=== PATIENT | female | born 1935 | race Caucasian/White ===

== ENCOUNTER → 2016-09-04 | Outpatient (REF) | payer OTHER ==
[~2016-09-04] MED LIST: ALLO100T PO; DOXY100C PO; DRIS50002 PO; FISH120012 PO; FOLI1TAB2 PO; FURO40TA2 PO; HYDR200T3 PO; MULT1TAB8 PO; PANT40TA2 PO; PRAD150C PO; PRAV1TAB39 PO; PRED5TA PO; PROP80TA PO; SPIR25TA2 PO; UNIT1TAB PO
== END ==
LOC: M SFHCPLAZ 09:30
PROVIDERS: ATTEND Family Medicine
DX: E03.9 Hypothyroidism, unspecified (principal)

== ENCOUNTER → 2016-11-18 | Outpatient (REF) | payer OTHER ==
[2016-11-18 14:25] LABS: ALBUMIN 3.3 GM/DL (3.2-5.2); ALBUMIN/GLOBULIN RATIO 1.22 (1.00-1.93); BILIRUBIN,TOTAL 0.6 MG/DL (0.2-1.0); CALCIUM LEVEL 8.2 MG/DL (8.8-10.2); CREATININE FOR GFR 1.73 MG/DL (0.55-1.02); GLOMERULAR FILTRATION RATE 30.2 (>39); POTASSIUM SERUM 4.5 MEQ/L (3.5-5.1)
== END ==
LOC: M SFHCPLAZ 11:32
PROVIDERS: ATTEND Family Medicine
DX: E11.9 Type 2 diabetes mellitus without complications (principal)

== ENCOUNTER → 2016-12-21 | Outpatient (REF) | payer OTHER ==
[2016-12-21 13:47] LABS: CALCIUM LEVEL 8.8 MG/DL (8.8-10.2); CREATININE FOR GFR 1.42 MG/DL (0.55-1.02)
[2016-12-21 13:49] LABS: POTASSIUM SERUM 5.3 MEQ/L (3.5-5.1)
== END ==
LOC: M SFHCPLAZ 11:02
PROVIDERS: ATTEND Family Medicine
DX: R79.89 Other specified abnormal findings of blood chemistry (principal)
CPT/HCPCS: 36415; 80048; G0463

== ENCOUNTER → 2016-12-25 | Outpatient (REF) | payer OTHER ==
[2016-12-25 13:05] LABS: CALCIUM LEVEL 8.3 MG/DL (8.8-10.2); CREATININE FOR GFR 1.57 MG/DL (0.55-1.02); GLOMERULAR FILTRATION RATE 33.8 (>39); POTASSIUM SERUM 4.8 MEQ/L (3.5-5.1)
== END ==
LOC: M SFHCPLAZ 09:38
PROVIDERS: ATTEND Family Medicine
DX: N18.3 Chronic kidney disease, stage 3 (moderate) (principal)

== ENCOUNTER → 2016-12-27 | Outpatient (REF) | payer OTHER | LOC: M SFHCPLAZ 11:10 | PROVIDERS: ATTEND Family Medicine | DX: N18.3 Chronic kidney disease, stage 3 (moderate) (principal) ==

== ENCOUNTER → 2016-12-28 | Outpatient (CLI) | payer OTHER ==
--- NOTE | 2016-12-28 11:16 | REP ---
Chronic medical renal disease. Technique: Real time hancock scale ultrasound examination using curved array transducer. Findings: The bilateral kidneys are are normal in contour, size, and echogenicity with prominent central renal sinus fat and cortical thinning consistent with age-related renal disease. No nephrolithiasis, hydronephrosis or mass lesion appreciated. Right kidney measures 9.2 x 4.1 x 4.9 cm and includes 1.3 cm lateral simple cyst. Left kidney measures 9.8 x 4.2 x 5.0 cm and includes 1.2 cm medial mid pole simple cyst. Impression: Evidence chronic medical renal disease. No hydronephrosis. Small simple cyst noted. Signed by Meliton Soler MD 12/28/2016 11:07 A
== END ==
LOC: M RAD 09:55
PROVIDERS: ATTEND Family Medicine
DX: N18.3 Chronic kidney disease, stage 3 (moderate) (principal)

== ENCOUNTER → 2017-02-15 | Outpatient (REF) | payer OTHER ==
[~2017-02-15] MED LIST changes: -FOLI1TAB2 PO; +FOLI1TAB4 PO
[2017-02-15 13:06] LABS: CALCIUM LEVEL 9.2 MG/DL (8.8-10.2); CREATININE FOR GFR 1.52 MG/DL (0.55-1.02); GLOMERULAR FILTRATION RATE 35.1 (>39); POTASSIUM SERUM 4.7 MEQ/L (3.5-5.1)
== END ==
LOC: M SFHCPLAZ 09:46
PROVIDERS: ATTEND Family Medicine
DX: N18.3 Chronic kidney disease, stage 3 (moderate) (principal)

== ENCOUNTER → 2017-02-22 | Outpatient (REF) | payer OTHER | LOC: M SFHCPLAZ 10:11 | PROVIDERS: ATTEND Family Medicine | DX: E11.21 Type 2 diabetes mellitus with diabetic nephropathy (principal) | CPT/HCPCS: 83036; G0463 ==

== ENCOUNTER → 2017-08-30 | Outpatient (REF) | payer OTHER ==
[2017-08-30 15:31] LABS: ANION GAP 9 MEQ/L (8-16); BLOOD UREA NITROGEN 38 MG/DL (7-18); CALCIUM LEVEL 8.8 MG/DL (8.8-10.2); CARBON DIOXIDE LEVEL 27 MEQ/L (21-32); CHLORIDE LEVEL 107 MEQ/L (98-107); CREATININE FOR GFR 2.29 MG/DL (0.55-1.02); GLOMERULAR FILTRATION RATE 21.9 (>39); GLUCOSE, FASTING 65 MG/DL (70-100); POTASSIUM SERUM 4.7 MEQ/L (3.5-5.1); SODIUM LEVEL 143 MEQ/L (136-145)
[2017-08-30 15:41] LABS: ESTIMATED AVERAGE GLUCOSE 137 MG/DL (60-110); HEMOGLOBIN A1c 6.4 %
== END ==
LOC: M SFHCPLAZ 10:26
DX: E11.21 Type 2 diabetes mellitus with diabetic nephropathy (principal); I10 Essential (primary) hypertension; E03.9 Hypothyroidism, unspecified
CPT/HCPCS: 84443

== ENCOUNTER → 2017-09-07 | Outpatient (CLI) | payer OTHER | LOC: M WHC 08:43 | DX: N18.3 Chronic kidney disease, stage 3 (moderate) (principal) | CPT/HCPCS: 76775 ==

== ENCOUNTER 2017-09-23 07:21 | Emergency (ER) | payer OTHER ==
[2017-09-23 08:42] LABS: KETONE, URINE AUTO RFX TRACE mg/dL (NEGATIVE); MUCUS, URINE RFX SMALL (NEGATIVE); RBC, URINE AUTO RFX 1 /HPF (0-3); SPECIFIC GRAVITY UR AUTO RFX 1.019 (1.002-1.035); SQUAM EPITHELIAL CELL UR AURFX 1 /HPF (0-6); WBC, URINE AUTO RFX 8 /HPF (0-3)
[2017-09-23 08:45] LABS: LEUKOCYTE ESTERASE UR AUTO RFX 1+ (NEGATIVE); NITRITE, URINE AUTO RFX POSITIVE (NEGATIVE)
== END 2017-09-23 09:08 | disposition home or self-care (01) ==
LOC: M ED 07:21
DX: N39.0 Urinary tract infection, site not specified (principal); G89.29 Other chronic pain; M54.5 Low back pain; I10 Essential (primary) hypertension; E03.9 Hypothyroidism, unspecified; M10.9 Gout, unspecified; M19.90 Unspecified osteoarthritis, unspecified site; Z79.899 Other long term (current) drug therapy; Z79.890 Hormone replacement therapy; Z88.2 Allergy status to sulfonamides; Z87.891 Personal history of nicotine dependence
CPT/HCPCS: 81001

== ENCOUNTER → 2017-10-13 | Outpatient (REF) | payer OTHER | LOC: M LAB REF 17:13 | DX: N39.0 Urinary tract infection, site not specified (principal) | CPT/HCPCS: 87086 ==

== ENCOUNTER → 2018-01-12 | Outpatient (REF) | payer OTHER ==
[2018-01-12 16:23] LABS: FERRITIN 41 NG/ML (8-252); IRON (FE) 73 UG/DL (50-170); PERCENT SATURATION 23.6 % (13.2-45.0); TOTAL IRON BINDING CAPACITY 309 UG/DL (250-450)
== END ==
LOC: M LAB REF 15:39
DX: N18.9 Chronic kidney disease, unspecified (principal); D63.1 Anemia in chronic kidney disease
CPT/HCPCS: 83550

== ENCOUNTER → 2018-03-02 | Outpatient (REF) | payer OTHER ==
[2018-03-02 18:01] LABS: ESTIMATED AVERAGE GLUCOSE 143 MG/DL (60-110); HEMOGLOBIN A1c 6.6 %
== END ==
LOC: M SFHCPLAZ 15:15
DX: E11.21 Type 2 diabetes mellitus with diabetic nephropathy (principal); Z12.11 Encounter for screening for malignant neoplasm of colon
CPT/HCPCS: 83036

== ENCOUNTER → 2018-05-19 | Outpatient (REF) | payer OTHER | LOC: M LAB REF 17:20 | DX: N39.0 Urinary tract infection, site not specified (principal) | CPT/HCPCS: 87186 ==

== ENCOUNTER → 2019-01-03 | Outpatient (REF) | payer OTHER, MEDICARE ==
[~2019-01-03] MED LIST changes: -DRIS50002 PO; +DRIS50003 PO; +FOLI1TAB11 PO; -FOLI1TAB4 PO; +GLIP2.5T6 PO; +LIPI10TA PO; +LISI-1046 PO; +MACR100C43 PO; -PANT40TA2 PO; +PANT40TA3 PO; -PRAD150C PO; +PRAD150C6 PO; +SPIR-10 PO; -SPIR25TA2 PO
[2019-01-03 20:00] LABS: BASO # 0.1 10^3/uL (0.0-0.2); BASO % 0.7 % (0.0-1.0); EOS # 0.1 10^3/uL (0.0-0.50); EOS % 0.9 % (0.0-3.0); HEMATOCRIT 40.2 % (36.0-47.0); HEMOGLOBIN 12.2 g/dl (12.0-15.5); LYMPH # 2.3 10^3/uL (1.5-4.5); LYMPH % 18.5 % (24.0-44.0); MEAN CORPUSCULAR HEMOGLOBIN 31.6 pg (27.0-33.0); MEAN CORPUSCULAR HGB CONC 30.3 g/dl (32.0-36.5); MEAN CORPUSCULAR VOLUME 104.1 fl (80.0-96.0); MONO # 1.1 10^3/uL (0.0-0.8); MONO % 9.2 % (0.0-5.0); NEUTROPHILS # 8.7 10^3/uL (1.8-7.7); NEUTROPHILS % 69.6 % (36.0-66.0); PLATELET COUNT, AUTOMATED 245 10^3/uL (150-450); RED BLOOD COUNT 3.86 10^6/uL (4.00-5.40); WHITE BLOOD COUNT 12.5 10^3/uL (4.0-10.0)
== END ==
LOC: M LAB REF 17:13
PROVIDERS: ATTEND Internal Medicine Nephrology
DX: N18.4 Chronic kidney disease, stage 4 (severe) (principal); N25.81 Secondary hyperparathyroidism of renal origin

== ENCOUNTER → 2019-01-17 | Outpatient (REF) | payer MEDICARE ==
[2019-01-17 15:21] LABS: HEMOGLOBIN A1c 7.2 %
== END ==
LOC: M SFHCPLAZ 11:01
PROVIDERS: ATTEND Family Medicine
DX: E11.21 Type 2 diabetes mellitus with diabetic nephropathy (principal)
CPT/HCPCS: 36415; 83036; G0463

== ENCOUNTER → 2019-04-19 | Outpatient (REF) | payer MEDICARE ==
[2019-04-19 13:13] LABS: CALCIUM LEVEL 9.6 MG/DL (8.8-10.2); CREATININE FOR GFR 2.14 MG/DL (0.55-1.30); GLOMERULAR FILTRATION RATE 23.5 (>32); MAGNESIUM LEVEL 2.4 MG/DL (1.8-2.4); POTASSIUM SERUM 4.7 MEQ/L (3.5-5.1)
[2019-04-19 13:35] LABS: HEMOGLOBIN A1c 7.1 %
== END ==
LOC: M SFHCPLAZ 10:52
PROVIDERS: ATTEND Family Medicine
DX: E11.21 Type 2 diabetes mellitus with diabetic nephropathy (principal); N18.4 Chronic kidney disease, stage 4 (severe)

== ENCOUNTER → 2019-08-16 | Outpatient (REF) | payer MEDICARE ==
[2019-08-16 13:56] LABS: HEMOGLOBIN A1c 7.5 %
== END ==
LOC: M SFHCPLAZ 10:51
PROVIDERS: ATTEND Family Medicine
DX: E11.21 Type 2 diabetes mellitus with diabetic nephropathy (principal); E03.9 Hypothyroidism, unspecified

== ENCOUNTER → 2019-09-12 | Outpatient (REF) | payer MEDICARE | LOC: M SFHCPLAZ 12:41 | PROVIDERS: ATTEND Family Medicine | DX: D23.5 Other benign neoplasm of skin of trunk (principal); D23.4 Other benign neoplasm of skin of scalp and neck | CPT/HCPCS: 11102; 11103; 88305; G0463 ==

== ENCOUNTER → 2019-10-03 | Outpatient (REF) | payer MEDICARE ==
[2019-10-03 12:09] LABS: BASO # 0.1 10^3/uL (0.0-0.2); BASO % 0.7 % (0.0-1.0); EOS # 0.2 10^3/uL (0.0-0.5); EOS % 1.3 % (0.0-3.0); HEMATOCRIT 40.5 % (36.0-47.0); HEMOGLOBIN 13.1 g/dl (12.0-15.5); MEAN CORPUSCULAR HEMOGLOBIN 34.3 pg (27.0-33.0); MEAN CORPUSCULAR HGB CONC 32.3 g/dl (32.0-36.5); MONO # 1.4 10^3/uL (0.0-0.8); NEUTROPHILS # 9.7 10^3/uL (1.5-8.5); NEUTROPHILS % 71.5 % (36.0-66.0); PLATELET COUNT, AUTOMATED 219 10^3/uL (150-450); RED BLOOD COUNT 3.82 10^6/uL (4.00-5.40); WHITE BLOOD COUNT 13.6 10^3/uL (4.0-10.0)
[2019-10-03 12:25] LABS: ALBUMIN 3.5 GM/DL (3.2-5.2); BILIRUBIN,TOTAL 0.7 MG/DL (0.2-1.0); CALCIUM LEVEL 9.2 MG/DL (8.8-10.2); CREATININE FOR GFR 2.47 MG/DL (0.55-1.30); GLOMERULAR FILTRATION RATE 19.9 (>32); MAGNESIUM LEVEL 2.5 MG/DL (1.8-2.4); POTASSIUM SERUM 5.4 MEQ/L (3.5-5.1); TOTAL PROTEIN 6.4 GM/DL (6.4-8.2)
== END ==
LOC: M SFHCPLAZ 09:20
PROVIDERS: ATTEND Family Medicine
DX: R42 Dizziness and giddiness (principal)
CPT/HCPCS: 36415; 80053; 83735; 85025; G0463

== ENCOUNTER → 2020-02-06 | Outpatient (REF) | payer MEDICARE ==
[~2020-02-06] MED LIST changes: -LISI-1046 PO; +LISI2.5T2 PO
[2020-02-06 18:41] LABS: HEMATOCRIT 42.4 % (36.0-47.0); HEMOGLOBIN 13.4 g/dl (12.0-15.5); MEAN CORPUSCULAR HEMOGLOBIN 33.4 pg (27.0-33.0); MEAN CORPUSCULAR HGB CONC 31.6 g/dl (32.0-36.5); MEAN CORPUSCULAR VOLUME 105.7 fl (80.0-96.0); PLATELET COUNT, AUTOMATED 252 10^3/uL (150-450); RED BLOOD COUNT 4.01 10^6/uL (4.00-5.40); WHITE BLOOD COUNT 16.4 10^3/uL (4.0-10.0)
[2020-02-06 18:51] LABS: HEMOGLOBIN A1c 7.7 %
[2020-02-06 19:01] LABS: FOLATE > 24.0 NG/ML; TOTAL 25(OH) VITAMIN D 99.2 NG/ML (30.0-100.0); VITAMIN B12 LEVEL 325 PG/ML
== END ==
LOC: M SFHCPLAZ 14:58
PROVIDERS: ATTEND Family Medicine
DX: D75.89 Other specified diseases of blood and blood-forming organs (principal); E11.21 Type 2 diabetes mellitus with diabetic nephropathy; E55.9 Vitamin D deficiency, unspecified
CPT/HCPCS: 36415; 82306; 82607; 82746; 83036; 85027; G0463

== ENCOUNTER → 2020-02-08 | Outpatient (REF) | payer MEDICARE ==
[2020-02-08 11:49] LABS: BASO # 0.1 10^3/uL (0.0-0.2); BASO % 0.7 % (0.0-1.0); EOS # 0.1 10^3/uL (0.0-0.5); HEMATOCRIT 41.2 % (36.0-47.0); HEMOGLOBIN 13.2 g/dl (12.0-15.5); LYMPH # 1.5 10^3/uL (1.5-5.0); MEAN CORPUSCULAR HEMOGLOBIN 34.3 pg (27.0-33.0); MONO % 9.2 % (0.0-5.0); NEUTROPHILS # 8.3 10^3/uL (1.5-8.5); NEUTROPHILS % 74.5 % (36.0-66.0); PLATELET COUNT, AUTOMATED 224 10^3/uL (150-450); RED BLOOD COUNT 3.85 10^6/uL (4.00-5.40); WHITE BLOOD COUNT 11.2 10^3/uL (4.0-10.0)
[2020-02-08 12:04] LABS: APPEARANCE, URINE HAZY (CLEAR); BACTERIA, URINE AUTO 1+ (NEGATIVE); BILIRUBIN, URINE AUTO NEGATIVE (NEGATIVE); BLOOD, URINE BLOOD 1+ (NEGATIVE); COLOR, URINE YELLOW (YELLOW); GLUCOSE, URINE (UA) AUTO NEGATIVE (NEGATIVE); KETONE, URINE AUTO NEGATIVE (NEGATIVE); LEUKOCYTE ESTERASE, URINE AUTO 3+ (NEGATIVE); MUCUS, URINE SMALL (NEGATIVE); NITRITE, URINE AUTO POSITIVE (NEGATIVE); PROTEIN, URINE AUTO NEGATIVE (NEGATIVE); RBC, URINE AUTO 4 /HPF (0-3); SPECIFIC GRAVITY URINE AUTO 1.015 (1.002-1.035); SQUAMOUS EPITHELIAL CELL UR AU 1 /HPF (0-6); UROBILINOGEN, URINE AUTO 0.2 mg/dL (0.0-2.0); WBC, URINE AUTO 64 /HPF (0-3)
== END ==
LOC: M PLALAB 09:20
PROVIDERS: ATTEND Family Medicine
DX: D72.829 Elevated white blood cell count, unspecified (principal)

== ENCOUNTER 2020-04-13 07:59 | Inpatient (IN) | payer MEDICARE ==
[2020-04-13] VITALS (11 sets, daily range): BP systolic 113–174; BP diastolic 59–87
[~2020-04-13] VITALS: Ht 152.4 cm; Wt 110.5 kg
[~2020-04-13 07:59] MED LIST changes: +PANT40TA29 PO; -PANT40TA3 PO
--- NOTE | 2020-04-13 08:48 | REPVR ---
PROCEDURE INFORMATION: Exam: XR Chest, 1 View Exam date and time: 04/13/2020 8:30 AM Age: 84 years old Clinical indication: Other: SOB; Additional info: Chest pain TECHNIQUE: Imaging protocol: XR of the chest Views: 1 view. COMPARISON: CR Chest, 1 view 12/14/2015 9:00 AM FINDINGS: Lungs: Suspect granulomatous calcification in the lower left chest. Pleural space: Unremarkable. No pleural effusion. No pneumothorax. Heart/Mediastinum: Cardiomegaly. Paratracheal calcified mediastinal lymph node. Bones/joints: Degenerative change of the spine. IMPRESSION: 1. Cardiomegaly. 2. No acute cardiopulmonary process. Electronically signed by: Cecille Andersen On 04/13/2020 08:48:02 AM
[2020-04-13 08:53] LABS: BASO # 0.1 10^3/uL (0.0-0.2); BASO % 0.6 % (0.0-1.0); EOS # 0.1 10^3/uL (0.0-0.5); EOS % 0.9 % (0.0-3.0); HEMATOCRIT 36.7 % (36.0-47.0); LYMPH # 0.9 10^3/uL (1.5-5.0); LYMPH % 8.2 % (24.0-44.0); MEAN CORPUSCULAR HGB CONC 32.7 g/dl (32.0-36.5); MONO # 0.7 10^3/uL (0.0-0.8); MONO % 6.8 % (0.0-5.0); NEUTROPHILS # 8.7 10^3/uL (1.5-8.5); NEUTROPHILS % 81.6 % (36.0-66.0); PLATELET COUNT, AUTOMATED 191 10^3/uL (150-450); RED BLOOD COUNT 3.43 10^6/uL (4.00-5.40); WHITE BLOOD COUNT 10.7 10^3/uL (4.0-10.0)
--- NOTE | 2020-04-13 09:05 | REPVR ---
PROCEDURE INFORMATION: Exam: CT Head Without Contrast Exam date and time: 04/13/2020 8:51 AM Age: 84 years old Clinical indication: Syncope and collapse; Additional info: Syncope on pradaxa TECHNIQUE: Imaging protocol: Computed tomography of the head without contrast. Radiation optimization: All CT scans at this facility use at least one of these dose optimization techniques: automated exposure control; mA and/or kV adjustment per patient size (includes targeted exams where dose is matched to clinical indication); or iterative reconstruction. COMPARISON: No relevant prior studies available. FINDINGS: Brain: Low attenuating changes of deep white matter suggesting micro vessel ischemia on a chronic basis. Ventricles: Normal. No ventriculomegaly. Bones/joints: Unremarkable. No acute fracture. Sinuses: Visualized sinuses are unremarkable. No fluid levels. Mastoid air cells: Visualized mastoid air cells are well aerated. Soft tissues: Unremarkable. Other findings: Hemispheric volume loss. IMPRESSION: 1. No acute intracranial process. 2. Hemispheric volume loss. 3. Periventricular micro vessel ischemia deep white matter. Electronically signed by: Cecille Andersen On 04/13/2020 09:04:55 AM
[2020-04-13 09:12] LABS: INR 2.82; PROTHROMBIN TIME 30.3 SECONDS (11.8-14.0)
[2020-04-13 09:14] LABS: PARTIAL THROMBOPLASTIN TIME 82.7 SECONDS (25.0-38.4)
[2020-04-13] MEDS ORDERED: CALC1CAP31 PO (09:16)
[2020-04-13] MEDS ORDERED: FURO20TA2 PO (10:01)
[2020-04-13] MEDS ORDERED: SYNT75TA PO (10:01)
[2020-04-13 11:00] LABS: ALBUMIN 2.9 GM/DL (3.2-5.2); BILIRUBIN,DIRECT 0.2 MG/DL (0.0-0.2); BILIRUBIN,TOTAL 0.7 MG/DL (0.2-1.0); FREE T4 1.73 NG/DL (0.76-1.46); MAGNESIUM LEVEL 2.3 MG/DL (1.8-2.4); THYROID STIMULATING HORMONE 4.63 uIU/ML (0.358-3.740); TOTAL PROTEIN 5.7 GM/DL (6.4-8.2)
[2020-04-13] MEDS ORDERED: DOPamine HCL 400 MG in IV 1 EA IV SCH (13:00)
[2020-04-13] MEDS: DOPamine HCL 400 MG in IV 1 EA IV SCH ×2 (13:48→20:13)
[2020-04-13] MEDS ORDERED: METOCLOPRAMIDE INJ 10MG/2ML VIAL (J2765 PER 1) IV PRN (15:15)
[2020-04-13] MEDS ORDERED: ONDANSETRON 4MG/2ML VIAL IV PRN (19:00)
[2020-04-13] MEDS ORDERED: HYDROXYCHLOROQUINE 200 MG TAB PO SCH (21:00)
[2020-04-13] MEDS: PROPRANOLOL 20 MG TAB PO SCH (21:00)
[2020-04-13] MEDS ORDERED: NS 1,000 ML IV SCH (22:13)
--- NOTE | 2020-04-13 22:13 | HPEPDOC ---
[facility] Medical History & Physical Date of Admission Apr 13, 2020 Date of Service: Apr 13, 2020 Primary Care Physician: A Attending Physician: LEXIE FORD MD History and Physical CHIEF COMPLAINT: syncope HISTORY OF PRESENT ILLNESS: 84 yo F with a hx of HTN, HLD, afib (on pradaxa), RA, CHF, hypothyroidism, chronic venous insufficiency, presented to the ED c/o 2 syncopal episodes this morning, fatigue and lightheadedness. She denies chest pain, n/v/d, palpitations. She has no fevers, no chills. On arrival to the ED patient noted to be severely bradycardic, down to 30s, occasionally going down to 20s. EMT cardiac strips reviewed. Pauses, 3rd deg AV block noted on partial strips. Patient follows outpatient with Dr. Unger, who is on consult. Admitted to ICU for close monitoring. Started on dopamine drip. Avoid any fidelina blocking agents. Planned for pacemaker. PAST MEDICAL HISTORY: 1. Chronic atrial fibrillation, on Pradaxa. 2. Hypertension. 3. Hypercholesterolemia. 4. Obesity. 5. Rheumatoid arthritis. 6. CHF, unknown ejection fraction. 7. Hypothyroidism. PAST SURGICAL HISTORY: 1. Tubal ligation. 2. Cholecystectomy. 3. Tonsillectomy. SOCIAL HISTORY: Former smoker No alcohol use. FAMILY HISTORY: non contributor ALLERGIES: Sulfa REVIEW OF SYSTEMS: positive as above HOME MEDICATIONS: Please see below. PHYSICAL EXAMINATION: VITAL SIGNS: please see below GENERAL APPEARANCE: NAD, comfortable in bed, converstational. HEENT: L conjunctival hemorrhage, PERRLA, EOMI. CARDIOVASCULAR: bradycardic to 30s. Irregular. LUNGS: CTAB. ABDOMEN: obese, soft, non tender, BS+. MUSCULOSKELETAL: ulnar deviation, joint destruction c/w RA EXTREMITIES: 1+ edema. NEUROLOGICAL: no focal deficits. PSYCHIATRIC: calm, cooperative AAO x 3.. LABORATORY DATA: See below. IMAGING: CT head wo contrast IMPRESSION: 1. No acute intracranial process. 2. Hemispheric volume loss. 3. Periventricular micro vessel ischemia deep white matter. MICROBIOLOGY: Please see below. ASSESSMENT: 84 yo F with a hx of HTN, HLD, afib (on pradaxa), RA, CHF, hypothyroidism, chronic venous insufficiency, presented to the ED c/o 2 syncopal episodes this morning, fatigue and lightheadedness secondary to severe bradycardia down to 20s. Pauses, 3rd deg AV block noted on partial strips. Patient follows outpatient with Dr. Unger, who is on consult. Admitted to ICU for close monitoring. Started on dopamine drip. Avoid any fidelina blocking agents. Planned for pacemaker. PLAN: Symptomatic bradycardia - admit to ICU - suspect 3rd deg AV block, SA node dysfunction - Cardiology - cardiac monitoring. Avoid fidelina blocking agents - Dopamine drip - leads on chest - plan for pacemaker in am - NPO at midnight. Afib - on pradaxa, hold prior to pacemaker. - propranolol Hypercholeserolemia - statin Hypothyroid - home levothyroxine Gout: - allopurinol RA: - plaquenil - prednisone GI ppx - protonix IV DVT ppx: SCDs, TEDs. Resume pradaxa when able. Vital Signs Vital Signs Date Time Temp Pulse Resp B/P (MAP) Pulse Ox O2 Delivery O2 Flow Rate FiO2 04/13/20 20:00 34 23 144/59 (87) 96 Nasal Cannula 2.0 04/13/20 19:00 97.8 Laboratory Data Labs 24H Laboratory Tests 2 04/13/20 08:34: Immature Granulocyte % (Auto) 1.9, Neutrophils (%) (Auto) 81.6H, Lymphocytes (%) (Auto) 8.2L, Monocytes (%) (Auto) 6.8H, Eosinophils (%) (Auto) 0.9, Basophils (%) (Auto) 0.6, Neutrophils # (Auto) 8.7H, Lymphocytes # (Auto) 0.9L, Monocytes # (Auto) 0.7, Eosinophils # (Auto) 0.1, Basophils # (Auto) 0.1, Nucleated Red Blood Cells % (auto) 0.0, Prothrombin Time 30.3H, Prothromb Time International Ratio 2.82, Activated Partial Thromboplast Time 82.7H, Magnesium Level 2.3, Total Bilirubin 0.7, Direct Bilirubin 0.2, Aspartate Amino Transf (AST/SGOT) 86H, Alanine Aminotransferase (ALT/SGPT) 74, Alkaline Phosphatase 52, Total Protein 5.7L, Albumin 2.9L, Albumin/Globulin Ratio 1.0L, Thyroid Stimulating Hormone (TSH) 4.630H, Free Thyroxine 1.73H 04/13/20 18:37: Coronavirus (COVID-19)(PCR) NEGATIVE CBC/BMP Laboratory Tests 04/13/20 08:34 Home Medications Scheduled Allopurinol (Allopurinol) 100 Mg Tab, 100 MG PO DAILY Calcitriol (Calcitriol) 0.25 Mcg Capsule, 0.25 MCG PO DAILY Dabigatran Etexilate Mesylate (Pradaxa) 150 Mg Cap, 150 MG PO BID Folic Acid (Folic Acid) 1 Mg Tab, 1 MG PO DAILY Furosemide (Furosemide) 20 Mg Tablet, 40 MG PO DAILY Hydroxychloroquine Sulfate (Hydroxychloroquine Sulfate) 200 Mg Tab, 200 MG PO BID Levothyroxine Sodium (Synthroid) 75 Mcg Tablet, 75 MCG PO DAILY Prednisone (Prednisone) 5 Mg Tab, 5 MG PO DAILY Propranolol HCl (Propranolol HCl) 80 Mg Tab, 80 MG PO BID Spironolactone (Spironolactone) 25 Mg Tab, 25 MG PO DAILY Allergies Coded Allergies: Sulfa (Sulfonamide Antibiotics) (Verified Allergy, Unknown, rash, 04/13/20) A-FIB/CHADSVASC A-FIB History Current/History of A-Fib/PAF?: Yes Current PO Anticoag Therapy: Yes LEXIE FORD MD Apr 13, 2020 22:13
[2020-04-14] VITALS: BP 112/51
[2020-04-14 01:00] VITALS: BP 118/57
[2020-04-14 02:00] VITALS: BP 128/59
[2020-04-14] MEDS: DOPamine HCL 400 MG in IV 1 EA IV SCH (02:56)
[2020-04-14 03:00] VITALS: BP 118/58
[2020-04-14 04:00] VITALS: BP 104/51
[2020-04-14 05:00] VITALS: BP 105/56
[2020-04-14] MEDS ORDERED: LEVOTHYROXINE 75MCG TABLET (0.075MG) PO SCH (06:00)
[2020-04-14] MEDS ORDERED: ATROPINE SULF 1MG/10ML SYRINGE (J0461) As Ordered ONE ×2 (06:46→06:49)
[2020-04-14] MEDS ORDERED: MAGNESIUM SULFATE 1GM/100ML D5W BAG (10MG/ML) As Ordered ONE (06:59)
[2020-04-14] MEDS ORDERED: LIDOCAINE 1% SDV 30ML VIAL As Ordered ONE (07:18)
[2020-04-14] MEDS ORDERED: MORPHINE 2 MG/ML 1ML VIAL (J2270) As Ordered ONE (07:22)
[2020-04-14] MEDS ORDERED: LORazepam 2 MG/ML VIAL IM STA (07:22)
[2020-04-14] MEDS ORDERED: SCOPOLAMINE 1MG TRANSDERMAL PATCH TOP PRN (07:30)
[2020-04-14] MEDS ORDERED: HYOSCYAMINE SULFATE 0.125 MG SUBL TABLET PO PRN (07:30)
[2020-04-14] MEDS ORDERED: ONDANSETRON 4MG/2ML VIAL IV PRN (07:30)
[2020-04-14] MEDS ORDERED: BISACODYL 10 MG SUPP PR PRN (07:30)
[2020-04-14] MEDS ORDERED: ACETAMINOPHEN 650 MG SUPP PR PRN (07:30)
[2020-04-14] MEDS ORDERED: MORPHINE 2 MG/ML 1ML VIAL (J2270) IV ONE (07:30)
[2020-04-14] MEDS ORDERED: ACETAMINOPHEN TAB 650MG DOSE (2X325MG) PO PRN (07:30)
[2020-04-14] MEDS ORDERED: MORPHINE 2 MG/ML 1ML VIAL (J2270) IV PRN (07:30)
[2020-04-14] MEDS ORDERED: LORazepam 2 MG/ML VIAL IV PRN (07:30)
[2020-04-14] MEDS ORDERED: FLEET ENEMA PR PRN (07:30)
[2020-04-14] MEDS ORDERED: ATROPINE SULFATE 1% OP SOLN 2 ML BTL SL PRN (07:30)
--- NOTE | 2020-04-14 07:58 | IPNPDOC ---
Date Seen The patient was seen on 04/14/20. Progress Note SUBJECTIVE: called to bedside, patient in critical conditions. Developed vtach this morning followed by asystole. ICU staff, overnight provider at bedside. Patient received 0.5 mg atropine pushes. MgSO4 push. Dopamine drip max. Transcutaneous pacing was attempted for bradycardia, patient asked to stop. Dr. Byrd was informed, plan was for pacemaker placement this morning. Unstable for transfer to OR. Mrs. Preciado expressed her wishes to be DNR/DNI (MOLST form completed on 04/13/20). Her daughter arrived, and was informed of the above events. She states that her mother had clearly expressed her DNR/DNI wishes to her, and she would not like for her to suffer. She confirmed that she would like to proceed with comfort measures only. New MOLST was signed and witnessed. OBJECTIVE PHYSICAL EXAMINATION: VITAL SIGNS: Please see below. GENERAL APPEARANCE: verbal, aaox0-1 HEENT: L conjunctival hemorrhage, PERRLA, EOMI. CARDIOVASCULAR: pulse faint, irregular, bradycardic LUNGS: reduced inspiratory effort ABDOMEN: obese, soft, non tender, BS+. MUSCULOSKELETAL: ulnar deviation, joint destruction c/w RA EXTREMITIES: 1+ edema. NEUROLOGICAL: no focal deficits. PSYCHIATRIC: AAO x 0-1 LABORATORY DATA, IMAGING STUDIES, MICROBIOLOGY: Please see below. Asystole/Bradyarrhythmia - s/p atropine, dopamine drip - Comfort measures - family at bedside - Morphine, ativan prn. VS, I&O, 24H, Fishbone Vital Signs/I&O Vital Signs Date Time Temp Pulse Resp B/P (MAP) Pulse Ox O2 Delivery O2 Flow Rate FiO2 04/14/20 05:00 33 18 105/56 (72) 99 Nasal Cannula 2.0 04/14/20 03:00 98.1 I&O- Last 24 Hours up to 6 AM 04/14/20 06:00 Intake Total 1763 ml Output Total 400 ml Balance 1363 ml Laboratory Data 24H LABS Laboratory Tests 2 04/13/20 08:34: Immature Granulocyte % (Auto) 1.9, Neutrophils (%) (Auto) 81.6H, Lymphocytes (%) (Auto) 8.2L, Monocytes (%) (Auto) 6.8H, Eosinophils (%) (Auto) 0.9, Basophils (%) (Auto) 0.6, Neutrophils # (Auto) 8.7H, Lymphocytes # (Auto) 0.9L, Monocytes # (Auto) 0.7, Eosinophils # (Auto) 0.1, Basophils # (Auto) 0.1, Nucleated Red Blood Cells % (auto) 0.0, Prothrombin Time 30.3H, Prothromb Time International Ratio 2.82, Activated Partial Thromboplast Time 82.7H, Magnesium Level 2.3, Total Bilirubin 0.7, Direct Bilirubin 0.2, Aspartate Amino Transf (AST/SGOT) 86H, Alanine Aminotransferase (ALT/SGPT) 74, Alkaline Phosphatase 52, Total Protein 5.7L, Albumin 2.9L, Albumin/Globulin Ratio 1.0L, Thyroid Stimulating Hormone (TSH) 4.630H, Free Thyroxine 1.73H 04/13/20 18:37: Coronavirus (COVID-19)(PCR) NEGATIVE CBC/BMP Laboratory Tests 04/13/20 08:34 LEXIE FORD MD Apr 14, 2020 07:58
[2020-04-14] MEDS ORDERED: MORPHINE SULF IN 0.9% NACL 100 MG in IV 1 EA IV SCH ×2 (08:00)
[2020-04-14] MEDS ORDERED: FUROSEMIDE 40 MG TAB PO SCH (09:00)
[2020-04-14] MEDS ORDERED: allopurinoL 100 MG TAB PO SCH (09:00)
[2020-04-14] MEDS ORDERED: SPIRONOLACTONE 25 MG TAB PO SCH (09:00)
[2020-04-14] MEDS ORDERED: predniSONE 5 MG TAB PO SCH (09:00)
[2020-04-14] MEDS ORDERED: FOLIC ACID 1 MG TAB PO SCH (09:00)
[2020-04-14] MEDS ORDERED: ATROPINE SULF 1MG/10ML SYRINGE (J0461) ONE (10:45)
--- NOTE | 2020-04-14 11:59 | IPNPDOC ---
Text Note Date of Service The patient was seen on 04/14/20. NOTE NOTE: Time of : 04/14/2020 at 0803 am. The patient developed life-threatening tachyarrhythmia this morning seen on cardiac monitoring followed by periods of asystole and subsequent bradycardia. Given DNR/DNI status, management involved medication administration, and attempts at transcutaneous cardiac pacing for bradyarrhythmia which were stopped at the patient's request. No CPR or intubation was performed. Patient was made comfort care by daughter on arrival to ICU. Cause of was cardiac arrest. On physical examination, there was absence of central pulse, no cardiac or breath sounds were heard on auscultation or seen on cardiac exercise specialist. Pupilary response was absent. Family was present at the time of . VS,Fishbone, I+O VS, Fishbone, I+O Vital Signs Date Time Temp Pulse Resp B/P (MAP) Pulse Ox O2 Delivery O2 Flow Rate FiO2 04/14/20 05:00 33 18 105/56 (72) 99 Nasal Cannula 2.0 04/14/20 03:00 98.1 I&O- Last 24 Hours up to 6 AM 04/14/20 06:00 Intake Total 1763 ml Output Total 400 ml Balance 1363 ml LEXIE FORD MD Apr 14, 2020 11:59
--- NOTE | 2020-04-14 12:05 | DS.PDOC ---
Discharge Summary General Date of Admission Apr 13, 2020 at 11:53 Date of Discharge 04/14/20 Attending Physician: LEXIE FORD MD Discharge Summary PROCEDURES PERFORMED DURING STAY: [None]. ADMITTING DIAGNOSES: 1. Symptomatic bradycardia 2. Afib 3. Hypercholesterolemia 4. Hypothyroid 5. Gout 6. Rheumatoid arthritis DISCHARGE DIAGNOSES: 1. Cardiac arrest 2. Symptomatic bradycardia 3. Afib 4. Hypercholesterolemia 5. Hypothyroid 6. Gout 7y.Rheumatoid arthritis COMPLICATIONS/CHIEF COMPLAINT: Fall Symptomatic Bradycardia Syncope. HISTORY OF PRESENT ILLNESS: 84 yo F with a hx of HTN, HLD, afib (on pradaxa), RA, CHF, hypothyroidism, chronic venous insufficiency, presented to the ED c/o 2 syncopal episodes this morning, fatigue and lightheadedness. She denies chest pain, n/v/d, palpitations. She has no fevers, no chills. On arrival to the ED patient noted to be severely bradycardic, down to 30s, occasionally going down to 20s. EMT cardiac strips reviewed. Pauses, 3rd deg AV block noted on partial strips. Patient follows outpatient with Dr. Unger, who is on consult. Admitted to ICU for close monitoring. Started on dopamine drip. Avoid any fidelina blocking agents. Planned for pacemaker. HOSPITAL COURSE: Patient was admitted to ICU for symptomatic bradycardia likely 2/2 AV block, possible SA node dysfunction. Dopamine drip was started in the ED for chronotropic support. Cardiology was consulted, case was discussed with Dr. Unger. Patient was planned for pacemaker placement in the morning. The patient developed vtach in the am, followed by periods of asystole and subsequent bradycardia. Patient was DNR/DNI, which precluded compressions per ACLS mary alice col. Atropine pushes were administered, dopamine drip at max. Attempted transcutaneous cardiac pacing, but patient asked to stop. Patient was unstable for transport to OR for pacemaker placement. Decision made by patient's daughter for [employer] status. MOLST forms were completed and witnessed. Patient at 0803 at 04/14/20. DISCHARGE MEDICATIONS: Please see below. ALLERGIES: Please see below. PHYSICAL EXAM ON DISCHARGE: . NO CENTRAL PULSES PALPATED. NO HEART SOUNDS HEARD ON CARDIAC AUSCULTATION. NO BREATH SOUNDS WERE HEARD ON BILATERAL CHEST AUSCULTATION. PUPILLARY REFLEX ABSENT. IMAGING: CXR: IMPRESSION: 1. Cardiomegaly. 2. No acute cardiopulmonary process CT hear wo contrast: IMPRESSION: 1. No acute intracranial process. 2. Hemispheric volume loss. 3. Periventricular micro vessel ischemia deep white matter. DISPOSITION: 20 . Vital Signs/I&Os Vital Signs Date Time Temp Pulse Resp B/P (MAP) Pulse Ox O2 Delivery O2 Flow Rate FiO2 04/14/20 05:00 33 18 105/56 (72) 99 Nasal Cannula 2.0 04/14/20 03:00 98.1 I&O- Last 24 Hours up to 6 AM 04/14/20 06:00 Intake Total 1763 ml Output Total 400 ml Balance 1363 ml Laboratory Data Labs 24H Laboratory Tests 2 04/13/20 18:37: Coronavirus (COVID-19)(PCR) NEGATIVE Discharge Medications Scheduled Allopurinol (Allopurinol) 100 Mg Tab, 100 MG PO DAILY, (Reported) Calcitriol (Calcitriol) 0.25 Mcg Capsule, 0.25 MCG PO DAILY, (Reported) Dabigatran Etexilate Mesylate (Pradaxa) 150 Mg Cap, 150 MG PO BID, (Reported) Folic Acid (Folic Acid) 1 Mg Tab, 1 MG PO DAILY, (Reported) Furosemide (Furosemide) 20 Mg Tablet, 40 MG PO DAILY, (Reported) Hydroxychloroquine Sulfate (Hydroxychloroquine Sulfate) 200 Mg Tab, 200 MG PO BID, (Reported) Levothyroxine Sodium (Synthroid) 75 Mcg Tablet, 75 MCG PO DAILY, (Reported) Prednisone (Prednisone) 5 Mg Tab, 5 MG PO DAILY, (Reported) Propranolol HCl (Propranolol HCl) 80 Mg Tab, 80 MG PO BID, (Reported) Spironolactone (Spironolactone) 25 Mg Tab, 25 MG PO DAILY, (Reported) Allergies Coded Allergies: Sulfa (Sulfonamide Antibiotics) (Verified Allergy, Unknown, rash, 04/13/20) LEXIE FORD MD Apr 14, 2020 12:05
--- NOTE | 2020-04-16 11:41 | CR ---
DATE OF CONSULTATION: 04/13/2020 REFERRING PROVIDER: Dr. Brendan Fine REASON FOR CONSULTATION: Symptomatic complete heart block. HISTORY OF PRESENT ILLNESS: This is an 84-year-old, woman well known by the office with a history of paroxysmal atrial flutter, hypertension, hyperlipidemia, hypothyroidism, morbid obesity, chronic obstructive pulmonary disease (COPD), glucose intolerance, has been doing well from a cardiac point of view and the last time she was seen in the office was on 02/07/2020 and at that time her vital signs were stable with a controlled blood pressure and her EKG revealed a sinus rhythm at 72 beats per minute and first-degree atrioventricular (AV) block, isolated premature atrial contractions (PACs), and a right bundle branch block pattern. She had an echocardiogram done on 12/02/2018 and it revealed normal global left ventricular systolic function with a mildly dilated left atrium, trace to small pericardial effusion, no significant valvular heart disease. At that time, she was in atrial flutter during the test. She has been doing well, but about 5-7 days ago she started feeling weak and lightheaded and yesterday and early today she was feeling sicker with an episode of syncope. Upon waking up with a syncopal episode, she called her daughter and she was brought to the emergency room (ER) for further evaluation. Upon arrival at the ER, her EKG revealed sinus bradycardia at 57 beats per minute, first-degree AV block, mild left axis deviation, intraventricular conduction delay (IVCD), and nonspecific ST-T abnormalities. On telemetry, and upon reviewing her rhythm strips, she had second-degree AV block as well as third-degree AV block. Patient was admitted for further management and monitoring. While being admitted by her hospitalist, she was hypotensive and she was started on dobutamine and dopamine. Since then, her blood pressure has been good. Mrs. Tasha Preciado was seen earlier this morning in the ER and again this evening, she was in supine in bed in no acute distress at rest. She denies any chest pain, palpitations, dizziness. She has been feeling nauseated. There is no focal manifestation. She is not coughing. There is no fever or chills. The last time she took her Pradaxa and her propanolol was yesterday in the evening. MEDICATIONS AT HOME: - allopurinol 100 mg by mouth daily - Rocaltrol 0.25 mcg by mouth daily - folic acid 1 mg by mouth daily - Lasix 20 mg by mouth daily - hydroxychloroquine 200 mg by mouth twice a day - Synthroid 75 mcg by mouth daily - magnesium oxide 400 mg by mouth daily - Pradaxa 75 mg by mouth twice a day - prednisone 5 mg by mouth daily - propranolol 80 mg by mouth twice a day - spironolactone 25 mg by mouth daily - vitamin D 50,000 units monthly PAST MEDICAL HISTORY: Positive, as mentioned above, for hypertension, hyperlipidemia, diabetes mellitus, hypothyroidism, obesity, sleep apnea, paroxysmal atrial flutter diagnosed in 2013, arthritis and underlying rheumatoid arthritis, bilateral lymphedema, gout. There is no known history of restrictive coronary artery disease, left ventricular systolic dysfunction, significant valvular heart disease, transient ischemic attack (TIA)/CVA, cardiomyopathy, sudden cardiac . PAST SURGICAL HISTORY: Positive for bilateral cataract extraction, cholecystectomy, tubal ligation. FAMILY HISTORY: Noncontributory. She does have a sister and other family members with a permanent pacemaker. SOCIAL HISTORY: Patient lives alone in her apartment but her daughter lives in the same building. She does not smoke or abuse alcohol. ALLERGIES: She has allergies to SULFA. ADVANCED DIRECTIVES: Patient has a DO NOT RESUSCITATE and DO NOT INTUBATE status. PHYSICAL EXAMINATION: Patient is alert and awake, in no acute distress at rest, and her most recent vital signs reveal a blood pressure of 144/62, and her pulse varies between 31 up to 47, respirations 18, and her maximum temperature is 98.8 degrees Fahrenheit. Examination of the head: Atraumatic. Neck is supple and I could not appreciate any jugular venous distention (JVD). The lungs did not reveal any wheezing or crackles. The heart examination reveals irregular heart sounds without gallops. The point of maximum impulse (PMI) is not displaced. There is no rub. I could not appreciate any murmurs. Abdomen is soft and nontender. Extremities reveal no pedal edema but lymphedema noted in the legs. Neurologic examination grossly is negative for focal deficit, patient was able to move all her upper extremities. LABORATORY DATA: CBC done today revealed WBC of 10.7, hemoglobin 12.0, hematocrit 36.7, and platelets 191,000. Liver enzymes revealed a total bilirubin of 0.7, direct bilirubin 0.2, AST 86, ALT 74, alkaline phosphatase 52, total protein 5.7, albumin 2.9. Serum magnesium is 2.3. Serum TSH is 4.6 with a free T4 of 1.7. PT is 30.3 with an INR of 2.8 and a PTT of 82.7. Chest x-ray revealed cardiomegaly, otherwise no acute disease process. Head CT revealed no acute intracranial process. Symptomatic third-degree atrioventricular (AV) block in this 84-year-old, woman with above past medical history and with DO NOT RESUSCITATE/DO NOT INTUBATE status. Patient currently is not feeling dizzy or lightheaded and denies any chest pain and there is no manifestation of heart failure on physical examination. Her blood pressure is stable on the dopamine. We discussed earlier today and this evening about permanent pacemaker and she is willing to proceed. Case was discussed with Dr. Byrd who is willing to implant her pacemaker sometime tomorrow and she is scheduled for 1 p.m. She will be monitored in the unit, intensive care unit/critical care unit (ICU/CCU). At this present time, she appears to be stable. Case also was discussed with her hospitalist. JERZY
--- NOTE | 2020-04-23 19:52 | ECGEPIP ---
[facility] - ED Test Date: 2020-04-13 Pat Name: EVELYN ALFARO Department: Room: [facility] Gender: Female Patient Monitor: MADHAVI : 1935 Requested By: Keith Yanez Order Number: [id number] Reading MD: Keith Yanez Measurements Intervals [place] Rate: 57 P: [place]: 0 QRS: -47 QRSD: 130 T: 83 QT: 475 QTc: 466 Interpretive Statements SINUS RHYTHM SIGNIFICANT [place] ELONGATION FIRST DEGREE AV BLOCK MARKED LEFT AXIS DEVIATION POSSIBLE RIGHT VENTRICULAR CONDUCTION DELAY POSSIBLE LEFT VENTRICULAR HYPERTROPHY NONSPECIFIC ST & T-WAVE ABNORMALITY ABNORMAL ECG NO PRIOR ECG SEE SCANNED DOWNTIME REPORT
== END 2020-04-14 10:46 | disposition expired | DRG 309 ==
LOC: M ED 07:59 → EDBD 07:59 → M ED INP 11:53 → ENRESERV 12:49 → M ICU 13:28
PROVIDERS: ADMIT Family Medicine; ATTEND Family Medicine
DX: I44.2 Atrioventricular block, complete (principal); Z68.42 Body mass index [BMI] 45.0-49.9, adult; I11.0 Hypertensive heart disease with heart failure; E78.00 Pure hypercholesterolemia, unspecified; E66.01 Morbid (severe) obesity due to excess calories; M05.9 Rheumatoid arthritis with rheumatoid factor, unspecified; I50.9 Heart failure, unspecified; I48.20 Chronic atrial fibrillation, unspecified; I87.2 Venous insufficiency (chronic) (peripheral); E03.9 Hypothyroidism, unspecified; Z51.5 Encounter for palliative care; Z66 Do not resuscitate; I46.2 Cardiac arrest due to underlying cardiac condition; I48.92 Unspecified atrial flutter; I49.5 Sick sinus syndrome; E11.9 Type 2 diabetes mellitus without complications; G47.30 Sleep apnea, unspecified; I89.0 Lymphedema, not elsewhere classified; M10.9 Gout, unspecified; I47.2 Ventricular tachycardia; Z87.891 Personal history of nicotine dependence; Z79.52 Long term (current) use of systemic steroids; Z88.2 Allergy status to sulfonamides; Z90.49 Acquired absence of other specified parts of digestive tract; Z79.899 Other long term (current) drug therapy; Z98.41 Cataract extraction status, right eye; Z98.42 Cataract extraction status, left eye; Z79.01 Long term (current) use of anticoagulants